=== PATIENT | male | born 1980 | race Two or more races ===

== ENCOUNTER 2017-04-04 22:21 | Emergency (ER) | payer BC, OTHER ==
[~2017-04-04] VITALS: Ht 182.9 cm; Wt 93.0 kg
--- NOTE | 2017-04-04 22:32 | NUR ---
PT BIBRA TO ER BED 10. PRESENTS W/ R ANKLE PAIN AND SWELLINGS/P FALL OFF A SCOOTER. PT STATES HIT HIS HEAD BUT DENIES KO. DRY BLOOD NOTED TO L HAND. STABLE VITALS. AWAITING MD KNAPP.
--- NOTE | 2017-04-04 22:34 | NUR ---
DR ROBBINS AT BEDSIDE FOR EVAL.
--- NOTE | 2017-04-04 22:51 | NUR ---
RADIOLOGY AT BEDSIDE FOR R ANKLE XRAY.
[2017-04-04] MEDS ORDERED: HYDROCODONE/APAP 10/325MG 1 EA TABLET ONE (22:57)
[2017-04-04] MEDS ORDERED: ONDANSETRON 4 MG TAB.RAPDIS ONE (22:57)
[2017-04-04] MEDS ORDERED: HYDROCODONE/APAP 10/325MG 1 EA TABLET PO ONE (23:00)
[2017-04-04] MEDS ORDERED: ONDANSETRON 4 MG TAB.RAPDIS SL ONE (23:00)
--- NOTE | 2017-04-04 23:06 | NUR ---
RAMESH KELLEY AT BEDSIDE FOR SPLINT PLACEMENT.
--- NOTE | 2017-04-04 23:43 | NUR ---
Patient discharged to home in stable condition. Written and verbal after care instructions given. Patient verbalizes understanding of instruction.Crutches dispensed. Pt instructed on proper use of crutches. Patient able to demonstrate correct use of crutches.
[2017-04-04 23:44] VITALS: BP 32/87
== END 2017-04-04 23:45 | disposition home or self-care (01) ==
LOC: ER 22:23
DX: S82.51XA Displaced fracture of medial malleolus of right tibia, initial encounter for closed fracture (principal); I10 Essential (primary) hypertension; K21.9 Gastro-esophageal reflux disease without esophagitis; V87.8XXA Person injured in other specified noncollision transport accidents involving motor vehicle (traffic), initial encounter; Y93.89 Activity, other specified; Y92.410 Unspecified street and highway as the place of occurrence of the external cause; Y99.9 Unspecified external cause status
CPT/HCPCS: 73610-TC; A4606; Q0162; Z7610

== ENCOUNTER 2017-04-07 01:17 | Emergency (ER) | payer BC, OTHER ==
[~2017-04-07] VITALS: Ht 182.9 cm; Wt 90.7 kg
--- NOTE | 2017-04-07 03:15 | NUR ---
PT CI W/ CO OF R LEG PAIN. PT IS S/P FRACTURE OF THE R ANKLE AND HAS BEEN SEEN HERE ON WEDNESDAY 04/04. STATES THAT PAIN HAS GOTTEN WORSE AND THAT THERE IS A NEW BURNING SENSATION ON HI R FOOT. TEMPORARY CAST STILL IN PLACE. WILL AWAIT FOR ARIA.
--- NOTE | 2017-04-07 03:38 | NUR ---
DR ROBBINS AT BEDSIDE FOR EVAL
[2017-04-07 04:57] VITALS: BP 128/78
== END 2017-04-07 04:51 | disposition home or self-care (01) ==
LOC: ER 01:17
DX: S82.51XA Displaced fracture of medial malleolus of right tibia, initial encounter for closed fracture (principal); I10 Essential (primary) hypertension; K21.9 Gastro-esophageal reflux disease without esophagitis; V87.8XXA Person injured in other specified noncollision transport accidents involving motor vehicle (traffic), initial encounter; Y93.89 Activity, other specified; Y92.89 Other specified places as the place of occurrence of the external cause; Y99.9 Unspecified external cause status
CPT/HCPCS: 29515; 99283; A4606; Z7610

== ENCOUNTER 2017-05-29 15:28 | Emergency (ER) | payer OTHER ==
[~2017-05-29] VITALS: Ht 182.9 cm; Wt 88.5 kg
--- NOTE | 2017-05-29 15:30 | NUR ---
PATIENT PRESENTS TO ER C/O RIGHT FOOT SWELLING AND PAIN S/P SURGERY AND CAST REMOVAL. PATIENT IS A/OX 4. BREATHING EVEN AND UNLABORED. NO SOB. NO DISTRESS. VITALS STABLE. SAFETY AND COMFORT MEAURSES IN PLACE. AWAITING MD ORDERS.
[2017-05-29] MEDS ORDERED: IBUPROFEN 400 MG TABLET ONE (16:12)
--- NOTE | 2017-05-29 16:25 | NUR ---
US TECH AT BEDSIDE.
[2017-05-29] MEDS ORDERED: IBUPROFEN 400 MG TABLET PO ONE (16:30)
[2017-05-29 16:58] VITALS: BP 135/72
--- NOTE | 2017-05-29 16:59 | NUR ---
Patient cleared for discharge per Dr. Moy. Patient discharged to home in stable condition. Written and verbal after care instructions given. Patient verbalizes understanding of instruction.
== END 2017-05-29 17:15 | disposition home or self-care (01) ==
LOC: ER 15:31
DX: M79.671 Pain in right foot (principal); I10 Essential (primary) hypertension; K21.9 Gastro-esophageal reflux disease without esophagitis
CPT/HCPCS: 93971; 99285; A4606; Z7610